=== PATIENT | male | born 1980 ===

== ENCOUNTER 2024-09-15 05:24 | Day surgery (SDC) | payer OTHER ==
[2024-09-15] MEDS ORDERED: DEXAMETHASONE SODIUM PHOSP/PF 10 MG/ML VIAL IV ONE (11:30)
[2024-09-15] MEDS ORDERED: CEFAZOLIN SODIUM 1,000 MG VIAL IV ONE (11:30)
[2024-09-15] MEDS ORDERED: FAMOTIDINE/PF 20 MG/2 ML VIAL IV ONE (11:30)
== END 2024-09-15 15:20 | disposition home or self-care (01) ==
LOC: CIR.AMB 05:24
PROVIDERS: ATTEND Otolaryngology
DX: J38.2 Nodules of vocal cords (principal); J38.3 Other diseases of vocal cords; Z88.2 Allergy status to sulfonamides